=== PATIENT | female | born 1995 | race Two or more races ===

== ENCOUNTER 2024-07-13 09:30 | Day surgery (SDC) | payer MEDICAID, SELFPAY ==
--- NOTE | 2024-07-09 15:35 | ESHP_ITS ---
RE: ZAHRA AGUIRRE : 1995 DATE OF ADMISSION: 07/13/2024 HISTORY OF PRESENT ILLNESS: This is a 28-year-old 5, para 2-0-2-2 with miscarriage at 10 weeks' gestation who presents for suction, dilatation, and curettage. ALLERGIES: NO KNOWN DRUG ALLERGIES. MEDICATIONS: None. 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 PAST SURGICAL HISTORY: Dilatation and curettage for miscarriage 08/2023. delivery 12/2013. SOCIAL HISTORY: She denies any alcohol, drug use, or smoking. OBSTETRIC HISTORY: 2013, 40 weeks, delivery, 6 pound 10 ounce female. No complications. 2018, spontaneous AB at 4 weeks gestation, no D and C. 08/2019, 40 weeks, vaginal after delivery. No complications. 08/2023, 11 weeks spontaneous AB with D and C. REVIEW OF SYSTEMS: She denies any chest pain, palpitations, cough, fever, shortness of breath, or lower extremity pain. PHYSICAL EXAMINATION: VITAL SIGNS: Blood pressure is 122/74 mmHg, heart rate 88, respirations 18, temperature 98.6. HEENT: Oropharynx and sclerae are clear. LUNGS: Clear to auscultation bilaterally. HEART: Regular rate and rhythm. ABDOMEN: Nontender. Old Pfannenstiel scar noted. EXTREMITIES: Nontender. SKIN: No gross rashes or lesions. NEUROLOGIC: No focal deficit. ASSESSMENT: Miscarriage at 10 weeks' gestation. PLAN: Suction dilatation and curettage. Informed consent was obtained. The patient was made aware of the risks, complications, alternatives, and benefits of the proposed procedure and she agrees. She is aware of the risk of bleeding, leading to blood transfusion, uterine perforation with injury to bladder or bowel, need for emergency laparotomy to stop or control bleeding, infection in the uterus and abdomen, blood clots in the legs and lungs, and anesthesia reactions and complications. This was explained in layman's terms in a manner she clearly understood as she verbalized understanding. DT: 15:09:01 TT: 15:34:00 Ref: [id number] - TID: [id number] [facility]
[2024-07-12 08:17] VITALS: BMI 24.3
[2024-07-12 08:52] LABS: Basophils % (Auto) 1 % (0-2.5); Eosinophils # (Auto) 0.1 Thou/mm3 (0.0-0.5); Eosinophils % (Auto) 1 % (0-10); Hematocrit 39.8 % (36.0-46.0); Hemoglobin 13.4 g/dL (12.0-16.0); Immature Granulocytes % (Auto) 0 % (0-0); Immature Granulocytes Auto 0.02 Thou/mm3 (0.00-0.00); Lymphocytes # (Auto) 2.7 Thou/mm3 (1.0-4.8); Lymphocytes % (Auto) 34 % (10-50); Mean Corpuscular HGB Conc 33.7 g/dl (31.0-37.0); Mean Corpuscular Hemoglobin 27.9 pg (25.0-35.0); Mean Corpuscular Volume 83 fL (80-100); Monocytes # (Auto) 0.4 Thou/mm3 (0.0-0.8); Monocytes % (Auto) 5 % (0-12); Neutrophils # (Auto) 4.8 Thou/mm3 (1.8-7.7); Neutrophils % (Auto) 60 % (37-80); Nucleated Red Blood Cell % 0 /100 WBC (0); Platelet Count 217 Thou/mm3 (140-440); RDW Standard Deviation 42.9 fL (36.4-46.3)
[2024-07-12 09:45] LABS: Alanine Aminotransferase 7 U/L (10-49); Albumin, Serum 4.2 gm/dL (3.5-5.0); Albumin/Globulin Ratio 1.6 (1.2-2.2); Alkaline Phosphatase 62 U/L (46-116); Anion Gap 7 (7-16); Aspartate Amino Transferase 14 U/L (0-34); BUN/Creatinine Ratio 9 Ratio (12-20); Beta HCG,Quantitative 1314 mIU/mL (<5.0); Bilirubin,Total 0.7 mg/dL (0.3-1.2); Blood Urea Nitrogen 7 mg/dL (9-23); Calcium 8.9 mg/dL (8.3-10.6); Calcium (Corrected) 8.9 mg/dL (8.5-10.1); Carbon Dioxide 23.8 mMol/L (20.0-31.0); Chloride 108 mMol/L (98-107); Creatinine (Component) 0.8 mg/dL (0.6-1.3); Estimated Creatinine Clearance 87.9 mL/min (>60); Globulin 2.7 gm/dL (2.3-3.5); Glucose 93 mg/dL (74-106); Osmolality,Calculated 275 (275-295); Potassium 3.6 mMol/L (3.4-5.1); Sodium 139 mMol/L (136-145); Total Protein 6.9 gm/dL (5.7-8.2); eGFR > 60 See Note
[2024-07-12 10:34] LABS: Partial Thromboplastin Time 29.1 Seconds (22.0-36.0); Prothrombin Time 11.2 Seconds (9.0-12.2)
[2024-07-13] VITALS (9 sets, daily range): BP systolic 110–132; BP diastolic 66–89; PULSE 75–80; RESP 12–20; TEMP 36.3–36.7; O2SAT 95–100; BMI 24.5
--- NOTE | 2024-07-13 09:55 | CHAP ---
Prayed with patient for upcoming procedure.
--- NOTE | 2024-07-13 12:46 | SUR.PHASEI ---
pt arrived to PACU via gurney drowsy but arouses to voice, breathing unlabored, peripad in place with small amount of red drainage present, report from Amaris RENTERIA, Delon RENTERIA, Denise LEWIS, and Dr Chowdary
--- NOTE | 2024-07-13 13:07 | SUR.PHASEI ---
pt tolerating ice chips without difficulty swallowing or n/v
--- NOTE | 2024-07-13 13:16 | SUR.PHASEII ---
1316 Report received from Radha King RN
--- NOTE | 2024-07-13 13:16 | SUR.PHASEII ---
report to Radha Perez RN
[2024-07-13] MEDS: fentaNYL CIT INJ 50 mCg/ML AMP 2ML 25 MCG IVP (13:41)
--- NOTE | 2024-07-13 14:05 | SUR.PHASEII ---
1405 Patient meets discharge criteria from recovery, awake and alert, breathing unlabored, vital signs stable, denies pain, dressing intact; no bleeding noted, patient drinking water; tolerating well, denies nausea, patient assisted with dressing into her clothing by her , discharge instructions given to patient and patients , signed discharge instructions. Patient given all her belongings prior to discharge, transported via wheelchair and left in a private vehicle.
--- NOTE | 2024-07-14 12:19 | ESOP_ITS ---
RE: ZAHRA AGUIRRE : 1995 DATE OF OPERATION: 07/13/2024 PREOPERATIVE DIAGNOSIS: Missed at 10 weeks gestation. POSTOPERATIVE DIAGNOSIS: Missed at 10 weeks gestation. PROCEDURE PERFORMED: Suction dilatation and curettage. SURGEON: Jaxon Green DO ROTARY BAR OPERATOR: None. ANESTHESIA: General. ANESTHESIOLOGIST: Dr. Chowdary. ESTIMATED BLOOD LOSS: 350 mL. COMPLICATIONS: None. COUNTS: Correct. PATHOLOGY: 1. Products of conception submitted for pathology. 2. Products of conception submitted for Anora miscarriage test through [email or web address]. FINDINGS: Uterus anteverted 10-week size. Cervix was closed. Large amount of products of conception in the uterine cavity. DESCRIPTION OF PROCEDURE: After proper informed consent was obtained and the patient was made aware of the risks, complications, alternatives, and benefits of the proposed procedure, she was taken to the operating room where she underwent induction of general anesthesia. She was placed in the dorsal lithotomy position. She was prepped and draped in the usual sterile fashion. A timeout was performed. A speculum was placed in the vagina. A single-tooth tenaculum was used to grasp the anterior lip of the cervix. The cervix was dilated to accommodate the 12 mm suction curette. The suction curette was then utilized to curette the uterine cavity in all 4 quadrants and products of conception were obtained. This was followed by a sharp curette of all four quadrants and then another suction curette and no additional products of conception were obtained. She received Methergine, Hemabate, and Pitocin and the uterus firmed up. She had 350 mL of blood loss during the procedure. All instruments were removed from the vagina. She was reversed from general anesthesia in the supine position and transferred to the recovery room in stable condition. She tolerated the procedure well. Counts were correct. I discussed with the patient's family the nature of her condition, intraoperative findings, expectation for recovery. All questions answered. DT: 13:01:51 TT: 18:14:00 Ref: [id number] - TID: [id number]
== END 2024-07-13 14:05 | disposition home or self-care (01) ==
PROVIDERS: Referring Provider Specialist; Visit Provider Specialist
PROC: (CPT 58120; principal; 2024-07-13 11:30)
DX: O02.1 Missed abortion (principal)
CPT/HCPCS: 59820; 36415; 80053; 84702; 85025; 85610; 85730; 86850; 86900; 86901; J0131; J0690; J1100; J1885; J2210; J2250; J2405; J2704; J3010; J3490